=== PATIENT | male | born 1945 | race Caucasian/White ===

== ENCOUNTER 2016-08-09 23:44 | Observation (INO) | payer MEDICARE, OTHER ==
--- NOTE | ~2016-08-09 | HP ---
History And Physical [address] [place]. [address] NAME: ARUNA MURRAY : 41 STATUS : ADM Reji PAT#: [id number] AGE: 71 ADM/REG DATE : 08/10/16 MR#: [id number] REPORT SERV DATE: 08/10/16 DICTATED BY: SHRUTHI LEACH DATE: 08/10/16 REPORT STATUS : Draft TRANSCRIBED BY: HARMAN DATE: 08/10/16 DATE OF ADMISSION: 08/10/2016 PERSONAL LINES ACCOUNT MANAGER: Torsten Jo M.D. ENT: Griffin Mccarthy M.D. CHIEF COMPLAINT: Atypical chest pain. HISTORY OF PRESENT ILLNESS: This pleasant 71-year-old gentleman with no known history of CAD, presents to our facility with complaints of 4 to 5/10 left-sided chest pain radiating to his left arm with associated shortness of breath. He states this event occurred after waking up yesterday, it lasted all day. He did take some aspirin prior to coming to the emergency room and his chest pain resolved prior to arrival. He has had no chest pain since. He is pain-free. He does report that he has a history of gout in his left shoulder and recently stacked wood and exerted himself quite strenuously for several hours, several days ago. The patient denies any personal history of myocardial infarction, stroke, DVT, or pulmonary embolus. The patient denies any recent fever or chills. No palpitations. No syncopal episodes. Denies PND or orthopnea. PAST MEDICAL HISTORY: 1. Hypertension. 2. Diabetes. 3. Dyslipidemia. 4. Pancreatic mass. 5. History of inappropriate sinus tachycardia. PAST SURGICAL HISTORY: 1. Tonsillectomy. 2. Right elbow surgery. 3. Hernia repair. 4. Cholecystectomy. 5. Total left knee replacement. 6. Septal surgery. SOCIAL HISTORY: He is . He does not have any children. He denies tobacco, alcohol, or illicits. FAMILY HISTORY: Mother with a heart attack in her late 50s; brother with a pacemaker; father with a stroke and a PE. REVIEW OF SYSTEMS: A 14-point review of systems performed, significant for HPI. No other contributory diagnoses identified. History And Physical [address] [place]. [address] NAME: ARUNA MURRAY : 41 STATUS : ADM Reji PAT#: [id number] AGE: 71 ADM/REG DATE : 08/10/16 MR#: [id number] REPORT SERV DATE: 08/10/16 DICTATED BY: SHRUTHI LEACH DATE: 08/10/16 REPORT STATUS : Draft TRANSCRIBED BY: HARMAN DATE: 08/10/16 ALLERGIES: NO KNOWN DRUG ALLERGIES. HOME MEDICINES: Aspirin 81 mg daily, carvedilol 6.25 mg twice daily, vitamin D3 at 2000 units p.r.n., vitamin B12 at 1000 mcg p.r.n., Jardiance 10 mg daily, Amaryl 4 mg twice daily, Lantus insulin 40 units at bedtime, Humalog insulin 15 units three times daily before meals, losartan 50 mg daily, Mag-Ox 400 mg daily, metformin 1000 mg twice daily, Crestor 10 mg nightly, MegaRed Krill oil p.r.n., and alpha lipoic acid daily. PHYSICAL EXAMINATION: VITAL SIGNS: Blood pressure 130/61, pulse 88, respirations 18, temperature 97.7, O2 saturation 95% on room air. Height 6 feet 2 inches. Weight 246 pounds. BMI 31. GENERAL: Cooperative, in no apparent distress. HEENT: Pupils 2 mm, sclera nonicteric. Nares patent. Moist mucous membranes. No xanthelasma. NECK: Trachea midline, no thyromegaly. No JVD. No bruits. LYMPH: No cervical lymphadenopathy. No supraclavicular lymphadenopathy. RESPIRATORY: Unlabored respirations. Breath sounds clear bilaterally to posterior auscultation. No wheezes or rhonchi. CARDIOVASCULAR: Regular rate. No murmur, rub or gallop appreciated. EXTREMITIES: Without edema. Pulses 2+ bilaterally. ABDOMEN: Soft, nontender, nondistended, normal bowel sounds auscultated throughout. No organomegaly. SKIN: Warm, dry extremities. No pallor, or cyanosis. PSYCHIATRIC: Appropriate affect. Alert, oriented x3. LABORATORY DATA: Troponin less than 0.02 x3. Potassium 4.7, BUN 11, creatinine 1.23, glucose 207, magnesium 1.9. WBC 9.7, hemoglobin 14.8, hematocrit 42.7, and platelet count 158,000. EKG: Sinus rhythm with RBBB. Stress echo, 12/2015: EF 55%. No ischemia. ASSESSMENT AND PLAN: 1. Atypical chest pain. Questionable musculoskeletal related, now pain-free. Troponins negative. The patient has been observed in the CPOU overnight to rule out myocardial infarction with serial enzymes and serial EKGs. Currently, pain-free. We will proceed with stress echo today given the patient's claustrophobia and inability to undergo nuclear stress testing which came as per his report. The patient will be discharged home if low risk, no ischemia. If anything suggestive of ischemia, Cardiology referral will be initiated. Otherwise, the patient will be asked to follow up with PCP and java technical architect as appropriate. 2. Hypertension, well managed. Continue home medications. 3. Diabetes. Continue home medications and level 1 sliding scale correction. 4. Dyslipidemia. Continue statin. 5. Claustrophobia. The patient is only tolerant to stress echo. History And Physical [address] [address] NAME: ARUNA MURRAY : 41 STATUS : ADM Reji PAT#: [id number] AGE: 71 ADM/REG DATE : 08/10/16 MR#: [id number] REPORT SERV DATE: 08/10/16 DICTATED BY: SHRUTHI LEACH DATE: 08/10/16 REPORT STATUS : Draft TRANSCRIBED BY: HARMAN DATE: 08/10/16 6. Nasal soreness. The patient will arrange followup established with ENT in one week. RAVI/HARMAN Shruthi Leach, MSN, [employer] / [phone] CC: Shruthi Leach, MSN, [employer] James Goodrich M.D.
[2016-08-09 23:19] LABS: BASOPHILS 0.4 %; BASOPHILS ABSOLUTE 0.04 10/3/uL (0.0-0.16); EOSINOPHILS 4.2 %; EOSINOPHILS ABSOLUTE 0.41 10/3/uL (0.0-0.53); HEMATOCRIT 42.7 % (40.0-51.0); HEMOGLOBIN 14.8 g/dL (13.6-17.8); IMMATURE GRANULOCYTES 0.9 %; IMMATURE GRANULOCYTES ABSOLUTE 0.09 10/3/uL (0.0-0.11); LYMPHOCYTES 18.7 %; LYMPHOCYTES ABSOLUTE 1.81 10/3/uL (0.67-4.30); MEAN CORPUS HGB CONC 34.7 g/dL (32.0-36.0); MEAN CORPUSCULAR HEMOGLOB 30.9 pg (26.0-34.0); MEAN CORPUSCULAR VOLUME 89.1 fL (80-100); MEAN PLATELET VOLUME 10.1 fL (9.2-13.0); MONOCYTES 9.5 %; MONOCYTES ABSOLUTE 0.92 10/3/uL (0.21-1.20); NEUTROPHILS 66.3 %; NEUTROPHILS ABSOLUTE 6.42 10/3/uL (2.02-8.40); PLATELET COUNT 158 10/3/uL (150-400); RBC DISTRIBUTION WIDTH 14.2 % (12.0-16.0); RED CELL COUNT 4.79 10/6/uL (4.7-6.1)
[2016-08-09 23:20] LABS: ER CBC TAT 0 Hrs 05 Mins; MANUAL DIFF NO %; WHITE BLOOD CELLS 9.7 10/3/uL (4.5-10.5)
[2016-08-09 23:28] LABS: INTERNATIONAL NORMAL RATI 1.1 UNITS (-); PARTIAL THROMBO TIME 30.4 SEC (22.5-37.2); PROTIME (NOT ORD) 13.7 SEC (12.0-14.5)
[2016-08-09 23:35] LABS: BUN (BLOOD UREA NITROGEN) 11 MG/DL (6-23); CALCIUM, SERUM 9.2 MG/DL (8.5-10.4); CHEST PAIN PROFILE TAT 0 Hrs 20 Mins; CHLORIDE, SERUM 104 MMOL/L (96-112); CREATININE 1.23 MG/DL (0.70-1.30); GFR AFRICAN AMERICAN 67 ML/MIN (>=60); GFR NON AFRICAN AMERICAN 58 ML/MIN (>=60); POTASSIUM, SERUM 4.7 MMOL/L (3.5-5.3); SODIUM, SERUM 139 MMOL/L (135-148); TROPONIN I <0.02 NG/ML (<0.05)
[2016-08-09 23:37] LABS: CO2 (CARBON DIOXIDE) 30 MMOL/L (24-34); GLUCOSE, SERUM 207 MG/DL (60-99)
[~2016-08-09 23:44] MED LIST: ALPHA LIPOIC300 MG PO; AMARYL4 PO; ASAB PO; B121000P IM; BIOTIN10 MG PO; COREG6 PO; COZ25 PO; CRESTOR10 PO; CYANO1000T PO; FISH-EPA1000 MG PO; GLUCOPHAGE1000 MG PO; GLUCPH PO; HALF81 PO; HUMALOGPEN SC; JANUMET1 TA1 PO; JARDI10T PO; LANTUS SC; LANTUSCART SC; LOP25 PO; MAGOX4 PO; NEXIUM40 PO; NIACIN 500 PO; OMEGA-3 KRILL PO; PREV30 PO; PRIN20 PO; TRILIPIX135 MG PO; VICTOZA SQ; VITAMIN B-1100 M1 PO; VITAMIN D1000 UNI1 PO; VITAMIN D31000 UNIT PO
[2016-08-10] MEDS ORDERED: COZ50 PO (00:12)
[2016-08-10] MEDS ORDERED: CRESTOR10 PO (00:12)
[2016-08-10] MEDS ORDERED: COREG6 PO (00:12)
[2016-08-10] MEDS ORDERED: GLUCOPHAGE1000 MG PO (00:13)
[2016-08-10] MEDS ORDERED: MAGOX4 PO (00:13)
[2016-08-10] MEDS ORDERED: AMARYL4 PO (00:13)
[2016-08-10] MEDS ORDERED: JARDI10T PO (00:15)
[2016-08-10] MEDS ORDERED: MEGA RED KRILL OIL PO (00:15)
[2016-08-10] MEDS ORDERED: HALF81 PO (00:16)
[2016-08-10] MEDS ORDERED: VITAMIN D31000 UNIT PO (00:16)
[2016-08-10] MEDS ORDERED: B121000P SC (00:17)
[2016-12-23] MEDS ORDERED: BACTRONASA NAS (15:31)
[2016-12-23] MEDS ORDERED: LANTUSCART SC (15:55)
[2016-12-23] MEDS ORDERED: HUMALOG KWIK SC (15:58)
[2016-12-23] MEDS ORDERED: [UNRECOGNIZED DRUG - OTHER] SC (15:58)
[2016-12-23] MEDS ORDERED: ALPHA LIPOIC ACID PO (16:00)
[2016-12-23] MEDS ORDERED: HARD NAILS PO (16:00)
[2016-12-23] MEDS ORDERED: HUMALOGPEN SC (16:01)
[2016-12-23] MEDS ORDERED: CYANO1000T PO (16:08)
[2017-01-26] MEDS ORDERED: NEXIUM40 PO (15:17)
[2017-01-27] MEDS ORDERED: IMDUR30 PO (09:11)
[2017-01-27] MEDS ORDERED: VITAMIN D31000 UNIT PO (09:11)
[2017-01-27] MEDS ORDERED: IND25 PO (09:12)
[2017-01-27] MEDS ORDERED: COLCRYS0.6 MG PO (09:12)
[2017-01-27] MEDS ORDERED: K500 PO (09:13)
== END 2016-08-10 13:50 | disposition home or self-care (01) ==
LOC: ER 23:44 → CDU1 08-10 00:21
PROVIDERS: Specialist
DX: R07.89 Other chest pain (principal); I10 Essential (primary) hypertension; E11.9 Type 2 diabetes mellitus without complications; E78.5 Hyperlipidemia, unspecified; Z90.49 Acquired absence of other specified parts of digestive tract; Z98.890 Other specified postprocedural states; Z79.82 Long term (current) use of aspirin; Z79.4 Long term (current) use of insulin; Z79.899 Other long term (current) drug therapy; F40.240 Claustrophobia
CPT/HCPCS: 71010; 80048; 82962; 83735; 84484; 85025; 85610; 85730; 93005; 93017; 99285; A9270-GY; C8928; G0378; Q9957